=== PATIENT | male | born 1960 | race Caucasian/White ===

== ENCOUNTER 2019-02-15 22:42 | Emergency (ER) | payer SELFPAY ==
[~2019-02-15] VITALS: Ht 185.4 cm; Wt 103.0 kg
[2019-02-16] MEDS ORDERED: HYDROCODONE/ACETAMINOPHEN 10/325MG TABLET PO ONE (01:00)
[2019-02-16 01:42] VITALS: BP 150/8
== END 2019-02-16 01:49 | disposition home or self-care (01) ==
LOC: ER 22:59
DX: M25.561 Pain in right knee (principal); W10.8XXA Fall (on) (from) other stairs and steps, initial encounter; Y93.89 Activity, other specified; Y92.89 Other specified places as the place of occurrence of the external cause; Y99.8 Other external cause status
CPT/HCPCS: 73562; 99283; Z7610